=== PATIENT | male | born 1975 | race Caucasian/White ===

== ENCOUNTER 2024-06-30 12:58 | Outpatient (CLI) | payer SELFPAY | END 2024-06-30 23:59 | disposition home or self-care (01) | LOC: MRI02 12:58 | PROVIDERS: ATTEND Podiatrist Foot & Ankle Surgery | DX: M19.072 Primary osteoarthritis, left ankle and foot (principal); M76.822 Posterior tibial tendinitis, left leg; M25.472 Effusion, left ankle; M25.471 Effusion, right ankle; M21.42 Flat foot [pes planus] (acquired), left foot; M21.41 Flat foot [pes planus] (acquired), right foot; M79.672 Pain in left foot; M79.671 Pain in right foot; M72.2 Plantar fascial fibromatosis; G57.51 Tarsal tunnel syndrome, right lower limb; M65.872 Other synovitis and tenosynovitis, left ankle and foot; R60.0 Localized edema | CPT/HCPCS: 73721 ==